=== PATIENT | female | born 1980 | race Asian ===

== ENCOUNTER 2024-02-23 13:24 | Outpatient (RCR) | payer OTHER, SELFPAY | END 2024-02-23 23:59 | disposition home or self-care (01) | LOC: RPT 13:24 | PROVIDERS: ATTENDING PHYSICIAN Obstetrics & Gynecology; FAMILY PHYSICIAN Internal Medicine | DX: N39.46 Mixed incontinence (principal); R10.2 Pelvic and perineal pain; M62.81 Muscle weakness (generalized); Z73.6 Limitation of activities due to disability | CPT/HCPCS: 97163; 97530 ==